=== PATIENT | male | born 1950 | race Caucasian/White ===

== ENCOUNTER 2018-02-18 07:31 | Emergency (ER) | payer MEDICARE ==
[~2018-02-18] VITALS: Ht 172.7 cm; Wt 81.8 kg
[2018-02-18] MEDS ORDERED: FISH OIL1 IU PO (07:38)
[2018-02-18] MEDS ORDERED: BRAIN MIGHT-DH1 EACH PO (07:38)
[2018-02-18 07:57] LABS: URINE APPEARANCE CLEAR; URINE COLOR YELLOW; URINE GLUCOSE NEGATIVE (NEGATIVE); URINE PROTEIN(semi-quant) TRACE mg/dL (NEGATIVE)
[2018-02-18 07:58] LABS: URINE BILIRUBIN NEGATIVE (NEGATIVE); URINE BLOOD 250 ery/uL (NEGATIVE); URINE KETONE NEGATIVE (NEGATIVE); URINE LEUKOCYTE ESTERASE TRACE (NEGATIVE); URINE NITRATE NEGATIVE (NEGATIVE); URINE UROBILINOGEN NORMAL (NORMAL)
[2018-02-18 08:18] LABS: HEMATOCRIT 46.1 % (42.0-52.0); HEMOGLOBIN 15.5 g/dL (13.5-18.0); MEAN CELL VOLUME 88 fl (78-100); MEAN CORPUSCULAR HEMOGLOBIN 30 pg (27-31); MEAN CORPUSCULAR HGB CONC 34 g/dL (33-37); MEAN PLATELET VOLUME 8.8 fl (7.4-10.4); PLATELET COUNT 270 K/mm3 (130-400); RED BLOOD COUNT 5.26 M/mm3 (4.20-5.60); RED CELL DISTRIBUTION WIDTH 12.6 % (11.5-14.5); WHITE BLOOD COUNT 6.7 K/mm3 (4.8-10.8)
[2018-02-18 08:29] LABS: BAND 1 % (0-10); LYMPHOCYTE 10 % (20-51); MONOCYTE 13 % (3-10); NEUTROPHILS 71 % (42-75)
[2018-02-18 08:31] LABS: ALBUMIN 4.2 g/dL (3.5-5.0); BUN/CREATININE RATIO 15.5 (6.0-26.0); CALCIUM 9.2 mg/dL (8.4-10.2); POTASSIUM 4.2 mmol/L (3.6-5.0); TOTAL BILIRUBIN 0.8 mg/dL (0.2-1.3); TOTAL PROTEIN 8.2 g/dL (6.3-8.2)
[2018-02-18 10:17] LABS: URINE APPEARANCE HAZY; URINE BILIRUBIN NEGATIVE (NEGATIVE); URINE BLOOD 250 ery/uL (NEGATIVE); URINE COLOR YELLOW; URINE GLUCOSE NEGATIVE (NEGATIVE); URINE KETONE NEGATIVE (NEGATIVE); URINE LEUKOCYTE ESTERASE NEGATIVE (NEGATIVE); URINE NITRATE NEGATIVE (NEGATIVE); URINE PROTEIN(semi-quant) NEGATIVE (NEGATIVE); URINE UROBILINOGEN NORMAL (NORMAL)
[2018-02-18] MEDS ORDERED: FLOMAX0.4 MG PO (11:02)
[2018-02-18] MEDS ORDERED: ZOFRAN ODT8 M1 PO (11:02)
[2018-02-18] MEDS ORDERED: KETOROLAC10 MG PO (11:02)
[2018-02-18] MEDS ORDERED: OXYCODONE5 M1 PO (11:02)
[2018-02-18 11:44] VITALS: BP 159/98
== END 2018-02-18 11:42 | disposition home or self-care (01) ==
LOC: ED 07:31
PROVIDERS: Physician Assistant
DX: N20.2 Calculus of kidney with calculus of ureter (principal); Z90.49 Acquired absence of other specified parts of digestive tract
CPT/HCPCS: J1885; J2405; J3010; J7030; Q9967

== ENCOUNTER 2022-02-13 16:11 | Emergency (ER) | payer MEDICARE ==
[~2022-02-13 16:11] MED LIST: BRAIN MIGHT-DH1 EACH PO; FISH OIL1 IU PO; FLOMAX0.4 MG PO; KETOROLAC10 MG PO; OXYCODONE5 M1 PO; ZOFRAN ODT8 M1 PO
[2022-02-13 16:48] LABS: BASO # 0.02 K/mm3 (0.02-0.10); EOS # 0.04 K/mm3 (0.04-0.40); EOS % 0.5 % (0.0-4.0); HEMOGLOBIN 15.6 g/dL (13.5-18.0); LYMPH# 1.14 K/mm3 (1.50-4.00); MEAN CELL VOLUME 88 fl (78-100); MEAN CORPUSCULAR HEMOGLOBIN 29 pg (27-31); MEAN CORPUSCULAR HGB CONC 33 g/dL (33-37); MEAN PLATELET VOLUME 8.4 fl (7.4-10.4); MONO # 1.23 K/mm3 (0.20-0.80); PLATELET COUNT 204 K/mm3 (130-400); RED BLOOD COUNT 5.34 M/mm3 (4.20-5.60); RED CELL DISTRIBUTION WIDTH 11.7 % (11.5-14.5); WHITE BLOOD COUNT 7.6 K/mm3 (4.8-10.8)
[2022-02-13 17:04] LABS: ALBUMIN 4.1 g/dL (3.4-4.8); POTASSIUM 4.2 mmol/L (3.5-5.1); SODIUM 138 mmol/L (136-145)
[2022-02-13 17:05] LABS: CALCIUM 9.4 mg/dL (8.3-10.5)
[2022-02-13 17:06] LABS: GLUCOSE 117 mg/dL (75-110); TOTAL PROTEIN 7.5 g/dL (6.2-8.1)
[2022-02-13 17:07] LABS: CARBON DIOXIDE 24 mmol/L (23-31)
[2022-02-13 17:12] LABS: AST-SGOT 16 U/L (5-34)
[2022-02-13 17:13] LABS: ALT/SGPT 25 U/L (0-55)
[2022-02-13 17:22] LABS: TROPONIN-I < 0.030 ng/mL (<0.030)
[2022-02-13] MEDS ORDERED: HYDROCODONE PO473 ML PO (17:58)
[2022-02-13] MEDS ORDERED: BENZONATATE200 MG PO (17:58)
[2022-02-13] MEDS ORDERED: MORGIDOX 1X100100 MG PO (17:58)
[2022-02-13] MEDS ORDERED: PREDNISONE20 M1 PO (17:58)
[2022-02-13 18:05] VITALS: BP 175/94
== END 2022-02-13 18:03 | disposition home or self-care (01) ==
LOC: ED 16:11
PROVIDERS: Physician Assistant
DX: J40 Bronchitis, not specified as acute or chronic (principal); J32.9 Chronic sinusitis, unspecified; Z28.310 Unvaccinated for COVID-19; Z20.822 Contact with and (suspected) exposure to COVID-19

== ENCOUNTER → 2023-05-27 | Outpatient (CLI) | payer MEDICARE ==
[~2023-05-27] MED LIST changes: +BENZONATATE200 MG PO; +HYDROCODONE PO473 ML PO; +MORGIDOX 1X100100 MG PO; +PREDNISONE20 M1 PO
[2023-05-27 08:36] LABS: BASO # 0.03 K/mm3 (0.02-0.10); EOS # 0.05 K/mm3 (0.04-0.40); EOS % 0.7 % (0.0-4.0); HEMOGLOBIN 16.3 g/dL (13.5-18.0); LYMPH# 1.47 K/mm3 (1.50-4.00); MEAN CELL VOLUME 89 fl (78-100); MEAN CORPUSCULAR HEMOGLOBIN 30 pg (27-31); MEAN CORPUSCULAR HGB CONC 33 g/dL (33-37); MEAN PLATELET VOLUME 8.4 fl (7.4-10.4); MONO # 0.87 K/mm3 (0.20-0.80); NEU # 5.04 K/mm3 (1.40-6.50); PLATELET COUNT 260 K/mm3 (130-400); RED BLOOD COUNT 5.52 M/mm3 (4.20-5.60); RED CELL DISTRIBUTION WIDTH 11.7 % (11.5-14.5); WHITE BLOOD COUNT 7.5 K/mm3 (4.8-10.8)
[2023-05-27 08:41] LABS: ALBUMIN 4.3 g/dL (3.4-4.8); POTASSIUM 4.2 mmol/L (3.5-5.1)
[2023-05-27 08:44] LABS: TOTAL PROTEIN 7.6 g/dL (6.2-8.1)
[2023-05-27 08:46] LABS: TOTAL BILIRUBIN 0.8 mg/dL (0.2-1.2)
[2023-05-27 08:48] LABS: URINE COLOR YELLOW
[2023-05-27 08:49] LABS: URINE APPEARANCE CLEAR; URINE BILIRUBIN NEGATIVE (NEGATIVE); URINE BLOOD NEGATIVE (NEGATIVE); URINE GLUCOSE NEGATIVE (NEGATIVE); URINE KETONE NEGATIVE (NEGATIVE); URINE LEUKOCYTE ESTERASE NEGATIVE (NEGATIVE); URINE NITRATE NEGATIVE (NEGATIVE); URINE PROTEIN(semi-quant) NEGATIVE (NEGATIVE); URINE UROBILINOGEN NORMAL (NORMAL); URINE WBC 0-1 /hpf (0-3)
== END ==
LOC: LAB 08:23
PROVIDERS: Physician Assistant
DX: Z13.220 Encounter for screening for lipoid disorders (principal); J01.90 Acute sinusitis, unspecified; J30.2 Other seasonal allergic rhinitis; N20.0 Calculus of kidney; R10.9 Unspecified abdominal pain